=== PATIENT | female | born 1955 | race African-American/Black ===

== ENCOUNTER 2016-09-26 11:10 | Emergency (ER) | payer OTHER ==
[~2016-09-26] VITALS: Ht 167.6 cm; Wt 95.3 kg
[2016-09-26 11:57] VITALS: BP 141/92
[2016-09-26] MEDS ORDERED: LIDOCAINE (700MG/PATCH) PATCH. TD SCH (12:30)
[2016-09-26] MEDS ORDERED: HYDROmorphone 2 MG/ML VIAL IM ONE (12:30)
--- NOTE | 2016-09-26 13:35 | PHYS DOC ---
Past Medical History Past Medical History: DVT, Other Additional Past Medical Histor: venous stasis, r leg numbness, chronic back pain Past Surgical History: Knee Replacement, Other Additional Past Surgical Histo: L knee Alcohol Use: None Drug Use: None Adult General Chief Complaint Chief Complaint: BACK PAIN - NO INJURY HPI HPI Patient is a 60 year old female who presents with complaint of worsening back pain. Patient has history of chronic back pain with right-sided radiculopathy. Patient states that her symptoms have been worsening over the past 1-2 days. Patient states that she is having pain in her right lower back that radiates into her right lower extremity. Patient denies any associated loss of bowel or bladder control, saddle anesthesia, or foot drop. Patient currently on a combination of fentanyl patches and Percocet tablets. Patient states that she took a Percocet tablet at 6:00 this morning. Patient states that despite therapy she is having 11 out of 10 pain currently. Patient denies any associated fevers, vomiting, or other atypical symptoms with her pain. Patient does admit to recent increase in activity. Review of Systems Review of Systems Constitutional: Denies fever or chills [] Eyes: Denies change in visual acuity, redness, or eye pain [] HENT: Denies nasal congestion or sore throat [] Respiratory: Denies cough or shortness of breath [] Cardiovascular: Denies chest pain or edema [] GI: Denies abdominal pain, nausea, vomiting, bloody stools or diarrhea [] : Denies dysuria or hematuria [] Musculoskeletal: Back pain [] Integument: Denies rash or skin lesions [] Neurologic: Denies headache, focal weakness or sensory changes [] Current Medications Current Medications Current Medications Medications (Trade) Dose Ordered Sig/[facility] Start Time Stop Time Status Last Admin Dose Admin Hydromorphone HCl (Dilaudid) 1 mg 1X ONCE 09/26/16 12:30 09/26/16 12:32 DC 09/26/16 12:45 1 MG Lidocaine (Lidoderm) 1 patch DAILY 09/26/16 12:30 09/26/16 13:41 DC 09/26/16 12:44 1 PATCH Allergies Allergies Allergies Coded Allergies Type Severity Reaction Last Updated Verified No Known Drug Allergies 09/26/16 No Physical Exam Physical Exam Constitutional: Alert, afebrile, appears in mild to moderate discomfort. [] HENT: Normocephalic, atraumatic, bilateral external ears normal, oropharynx moist, no oral exudates, nose normal. [] Eyes: PERRLA, EOMI, conjunctiva normal, no discharge. [] Neck: Normal range of motion, no tenderness, supple, no stridor. [] Cardiovascular:Heart rate regular rhythm, no murmur [] Lungs & Thorax: Bilateral breath sounds clear to auscultation [] Abdomen: Bowel sounds normal, soft, no tenderness, no masses, no pulsatile masses. [] Skin: Warm, dry, no erythema, no rash. [] Back: No midline tenderness, right lower lumbar paraspinous muscle tenderness to palpation and tenderness along the distribution of right sciatic nerve, no CVA tenderness. [] Extremities: No tenderness, no cyanosis, no clubbing, ROM intact, no edema. [] Neurologic: Alert and oriented X 3, normal motor function, normal sensory function, no focal deficits noted. [] Current Patient Data Vital Signs Vital Signs Date Time Temp Pulse Resp B/P (MAP) Pulse Ox O2 Delivery O2 Flow Rate FiO2 09/26/16 12:45 18 98 Room Air 09/26/16 11:57 98.4 84 98.4 EKG EKG Not performed [] Radiology/Procedures Radiology/Procedures Not performed [] Course & Med Decision Making Course & Med Decision Making Pertinent Labs and Imaging studies reviewed. (See chart for details) The patient was given IM Dilaudid and a Lidoderm patch was applied to the right lower back. On reevaluation, patient states her symptoms have improved at this time. Patient is ambulatory in the emergency department with a nonfocal during gait. Advised patient to follow back up with her primary doctor in the next 5-7 days to discuss further pain treatment options. Advised return emergency department for any worsening symptoms. Patient voiced understanding and in agreement with treatment plan. Dragon Disclaimer Dragon Disclaimer This electronic medical record was generated, in whole or in part, using a voice recognition dictation system. Departure Departure Impression: Primary Impression: Acute exacerbation of chronic low back pain Disposition: 01 HOME, SELF-CARE Condition: IMPROVED Referrals: XUAN CHAVEZ (PCP) Patient Instructions: Chronic Back Pain Additional Instructions: Follow-up with primary doctor in the next 3-5 days for reevaluation. Return to emergency department for any worsening symptoms. ROYCE BLANCHARD MD Sep 26, 2016 13:35
== END 2016-09-26 13:40 | disposition home or self-care (01) ==
LOC: ER 11:10
DX: G89.29 Other chronic pain (principal); M54.5 Low back pain; Z86.718 Personal history of other venous thrombosis and embolism; Z96.659 Presence of unspecified artificial knee joint
CPT/HCPCS: 96372; 99283; J1170

== ENCOUNTER 2016-10-02 11:44 | Emergency (ER) | payer OTHER ==
[~2016-10-02] VITALS: Ht 167.6 cm; Wt 95.3 kg
[2016-10-02] MEDS ORDERED: oxyCODONE/APAP 7.5/325 1 TAB TABLET PO ONE (13:30)
--- NOTE | 2016-10-02 15:12 | RAD ---
Indication: Bilateral lower extremity pain and swelling. Grayscale, color-flow and duplex Doppler evaluation of bilateral lower extremity deep venous systems was performed. FINDINGS: There is no evidence of right or left lower extremity DVT. Both lower extremity deep venous systems showed normal compressibility with normal response to augmentation and Valsalva. No fluid collection or mass is detected. IMPRESSION: No evidence of right or left lower extremity DVT.
--- NOTE | 2016-10-02 15:22 | RAD ---
Indication: Bilateral lower external knee pain. Grayscale, color-flow and duplex Doppler evaluation of bilateral lower extremity arterial systems was performed. There are predominantly triphasic and biphasic waveforms throughout the right lower extremity arterial system. No significant velocity elevation is seen. No high-grade stenosis or occlusion is identified. There is primarily monophasic flow throughout the left lower extremity arterial system. No significant velocity elevation is seen on the left. No high-grade stenosis or occlusion is detected. Impression: Monophasic flow in the left lower extremity arterial system. This could be owing to a more proximal stenosis, perhaps within the left iliac. No occlusion or high-grade stenosis within either lower extremity arterial system is seen.
[2016-10-02 16:06] VITALS: BP 116/68
--- NOTE | 2016-10-02 19:49 | ED.ADGEN ---
Past Medical History Past Medical History: DVT, Other Additional Past Medical Histor: venous stasis, r leg numbness, chronic back pain Past Surgical History: Cholecystectomy, Hysterectomy Alcohol Use: None Drug Use: None Adult General Chief Complaint Chief Complaint: MULTIPLE COMPLAINTS HPI HPI Patient is a 60 year old [place] female with chronic bilateral leg pain with increased left leg pain and swelling past 2 days. Patient was seen in the emergency department approximately week ago for the same and was seen by Dr. Coleman 2 days ago for back pain. Review of Systems Review of Systems Review symptoms as per history of present illness. All other review symptoms are negative. Current Medications Current Medications Current Medications Medications (Trade) Dose Ordered Sig/[facility] Start Time Stop Time Status Last Admin Dose Admin Oxycodone/ Acetaminophen (Percocet 7.5/ 325) 1 tab 1X ONCE 10/02/16 13:30 10/02/16 13:31 DC 10/02/16 13:40 1 TAB Allergies Allergies Allergies Coded Allergies Type Severity Reaction Last Updated Verified No Known Drug Allergies 10/02/16 No Physical Exam Physical Exam Constitutional: Well developed, well nourished, no acute distress, non-toxic appearance. HENT: Normocephalic, atraumatic, bilateral external ears normal, oropharynx moist, no oral exudates, nose normal. Eyes: PERRL. Neck: Normal range of motion. Cardiovascular:Heart rate regular rhythm, no murmur. Lungs & Thorax: Bilateral breath sounds clear to auscultation. Abdomen: Bowel sounds normal, soft, no tenderness. Skin: No cellulitis. Back: Diffuse mid lower back pain. Extremities: Bilateral peripheral edema with left leg swelling greater than right, dark to discoloration of left ankle and foot. 1+ bipedal pulses. Left leg swelling greater than right. Scarring to right posterior medial thigh. Good distal cap refill. Diffuse soft tissue pain. Neurologic: Alert and oriented X 2. Current Patient Data Vital Signs Vital Signs Date Time Temp Pulse Resp B/P (MAP) Pulse Ox O2 Delivery O2 Flow Rate FiO2 10/02/16 16:06 80 20 116/68 (84) 95 10/02/16 12:13 99.3 Room Air 99.3 EKG EKG [] Radiology/Procedures Radiology/Procedures CV US, Bilateral venous Doppler lower extremities: No evidence of DVT.] CV US, Bilateral arterial Doppler lower extremities.: Monophasic arterial blood flow and left leg with no identifiable stenosis of lower extremity. Common iliac stenosis possible per radiology report. Course & Med Decision Making Course & Med Decision Making Pertinent Labs and Imaging studies reviewed. (See chart for details) [Coordinated and ultrasounds reviewed with detail with Dr. Coleman will see the patient in follow-up. Pain medication righted. Patient has follow-up appointment PCP in 2 days. Dragon Disclaimer Dragon Disclaimer This electronic medical record was generated, in whole or in part, using a voice recognition dictation system. TD MELO DO Oct 02, 2016 19:49
== END 2016-10-02 17:31 | disposition home or self-care (01) ==
LOC: ER 11:44
DX: M79.605 Pain in left leg (principal); M79.604 Pain in right leg; M54.5 Low back pain; G89.29 Other chronic pain; M79.89 Other specified soft tissue disorders; Z86.718 Personal history of other venous thrombosis and embolism; Z90.49 Acquired absence of other specified parts of digestive tract; Z90.710 Acquired absence of both cervix and uterus
CPT/HCPCS: 93923; 93970; 99284-25

== ENCOUNTER 2016-11-14 14:40 | Emergency (ER) | payer OTHER ==
[~2016-11-14] VITALS: Ht 167.6 cm; Wt 95.3 kg
[2016-11-14 15:15] VITALS: BP 135/74
--- NOTE | 2016-11-14 15:57 | RAD ---
Indication fall. Pain. AP oblique and lateral views of the right hand were obtained. There is probable bony demineralization. No acute bony finding is seen
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
--- NOTE | 2016-11-14 16:04 | PHYS DOC ---
Past Medical History Past Medical History: DVT, Other Additional Past Medical Histor: venous stasis, r leg numbness, chronic back pain Past Surgical History: Cholecystectomy, Hysterectomy Additional Past Surgical Histo: L knee Alcohol Use: None Drug Use: None Adult General Chief Complaint Chief Complaint: HAND PROBLEM HPI HPI Patient is a 60 year old female with no significant medical history who presents today complaining of mild right hand pain, bilateral knee pain, and left calf pain after falling yesterday. Patient states she saw a snake on the ground when ambulating. Patient states she had to jump and fell. Patient denies any loss of consciousness. Review of Systems Review of Systems Constitutional: Denies fever or chills [] Musculoskeletal: mild right hand pain, bilateral knee pain, and left calf pain Integument: Denies rash or skin lesions [] Neurologic: Denies headache, focal weakness or sensory changes [] Endocrine: Denies polyuria or polydipsia [] Allergies Allergies Allergies Coded Allergies Type Severity Reaction Last Updated Verified No Known Drug Allergies 10/02/16 No Physical Exam Physical Exam Constitutional: Well developed, well nourished, no acute distress, non-toxic appearance. [] Skin: Warm, dry, no erythema, no rash. [] Back: No tenderness, no CVA tenderness. [] Extremities: Right hand with mild amount of soft tissue swelling on the right middle knuckle. Tenderness on palpation of the right middle knuckle. Full range of motion to the right hand and fingers. +2 right radial pulse. Adequate radial medial and ulnar sensation to the right hand. Cap refill less than 2 seconds the right fingers. Bilateral knees with no obvious deformity. Slight tenderness on palpation over anterior aspect of bilateral knees over the patella. Patient able to hold bilateral lower extremities straight with no difficulties. Negative Bimal sign and negative Gunner's sign negative anterior-posterior drawer sign bilaterally. +2 bilateral pedal pulses. Neurologic: Alert and oriented X 3, normal motor function, normal sensory function, no focal deficits noted. [] Psychologic: Affect normal, judgement normal, mood normal. [] Current Patient Data Vital Signs Vital Signs Date Time Temp Pulse Resp B/P (MAP) Pulse Ox O2 Delivery O2 Flow Rate FiO2 11/14/16 15:15 98.2 96 18 97 Room Air 98.2 EKG EKG [] Radiology/Procedures Radiology/Procedures [] Course & Med Decision Making Course & Med Decision Making Pertinent Labs and Imaging studies reviewed. (See chart for details) Patient is in the ED with right hand pain, bilateral knee pain and right there was no loss of consciousness. Right hand x-rays 3 views interpreted by radiologist were negative for any acute findings. Right tib-fib x-rays interpreted by radiologist were negative for any acute findings. Bilateral knee x-rays interpreted by radiologist were negative for any acute findings. Jim wrap applied to the right hand by me. Neurovascular exam done by me is normal. Patient was discharged with instructions to follow-up with orthopedic doctor in 1-2 weeks. She requested a prescription for pain medicine. She states she only has one Dilaudid left. Informed her i can give her oxycodone for a few days while she tries to get in to see her own doctor. She promised to follow-up with her own doctor for refills. 19:17 Local pharmacy called me stating patient filled the following prescriptions 11/05/2016 Dilaudid 4 mg 120 tablets 10/22/2016 Fentanyl 25 patches 10/22/2016 Oxycodone 1 month supply I cancelled my prescription. Requested the pharmacist to tell patient she can follow-up with her own PCP for pain medicines Patient called complaining stating we refused to fill her prescription for oxycodone. She states we're not respecting her pain needs because we refusing to fill have medicine. Informed patient she was noted to fill the above medications as informed by a local pharmacist. She states she already told us her medicines fell down when she saw a snake yesterday, which is untrue because she never said that to me. Informed her that regardless of how she lost her medication I will not fill the prescription for oxycodone because she has been noted to fill alot of pain medicines in less than a month. Informed that she is welcome to return back to the ED if am present i will give her a pain shot but she must bring a cab driver. She is yelling stating she has no cab driver. Informed her she can take a taxi and come back to the ED and all give her a pain shot. She states she does not want to do that either. Informed her that she is welcomed to follow-up with our pain clinic doctor and I will give her the phone number and she can call tomorrow and be seen. She states she has her own doctor she doesn't need any other doctors. Patient continues to yell. Informed patient we do not fill prescription pain medicine if patient is noted by a local pharmacist to fill another prescription a couple days ago. Informed her even the [employer] is monitoring how people are using drugs and hence would like health care providers to assist in this drug use problem in the country. Patient states it's all about her pain not what the government is doing. Informed patient we as healthcare providers have to step up and help the government fight this problem. Patient continued to yell. Reminded patient she is welcome to come back any time and if I am present and i will give her pain medicine but she must bring a cab driver. Patient is yelling but still begging for me to fill the prescription. Informed will not fill that prescription at all. She hanged up the phone. 19:40 Patient called again asking if she can have Ibuprofen. I informed her i can talk to the pharmacist and order her Ibuprofen 800 mg TID which i did but i will not fill the oxycodone Dragon Disclaimer Dragon Disclaimer This electronic medical record was generated, in whole or in part, using a voice recognition dictation system. Departure Departure Impression: Primary Impression: Fall from standing Additional Impressions: Contusion of right hand Bilateral knee pain Right leg pain Disposition: 01 HOME, SELF-CARE Condition: STABLE Referrals: XUAN CHAVEZ (PCP) Follow-up with your doctor in the next 7 days Patient Instructions: Contusion, Fall Prevention and Home Safety Additional Instructions: You were seen for right hand contusion, bilateral knee pain and left lower extremity pain after falling. Your x-rays are negative for any acute findings. Ice and elevate the extremities. Follow-up with your own doctor in the next 7 days for more pain medications as well as for pain. Return to the ED symptoms worsen. Scripts Naproxen (NAPROXEN) 500 Mg Tablet. 1 TAB PO BID, #30 TAB 2 Refills Prov: CECILE RODRIGUEZ APRN 11/14/16 Cyclobenzaprine Hcl (CYCLOBENZAPRINE HCL) 10 Mg Tablet 1 TAB PO TID, #30 TAB Prov: CECILE RODRIGUEZ APRN 11/14/16 Oxycodone/Apap 5-325 (PERCOCET 5-325 MG TABLET) 1 Each Tablet 1-2 TAB PO Q4-6HRS, #10 TAB Prov: CECILE RODRIGUEZ FRUIT PITTER 11/14/16 Problem Qualifiers Primary Impression: Fall from standing Encounter type: initial encounter Qualified Codes: W19.XXXA - Unspecified fall, initial encounter Additional Impressions: Contusion of right hand Encounter type: initial encounter Qualified Codes: S60.221A - Contusion of right hand, initial encounter Bilateral knee pain Chronicity: acute Qualified Codes: M25.561 - Pain in right knee; M25.562 - Pain in left knee CECILE RODRIGUEZ FRUIT PITTER Nov 14, 2016 16:04
[2016-11-14] MEDS ORDERED: OXYC-323 PO (16:15)
[2016-11-14] MEDS ORDERED: NAPR500T8 PO (16:15)
[2016-11-14] MEDS ORDERED: CYCL10TA2 PO (16:15)
== END 2016-11-14 16:24 | disposition home or self-care (01) ==
LOC: ER 14:40
DX: S60.221A Contusion of right hand, initial encounter (principal); M25.562 Pain in left knee; M25.561 Pain in right knee; M79.604 Pain in right leg; G89.29 Other chronic pain; Z86.718 Personal history of other venous thrombosis and embolism; Z90.49 Acquired absence of other specified parts of digestive tract; Z90.710 Acquired absence of both cervix and uterus; W18.39XA Other fall on same level, initial encounter; Y93.39 Activity, other involving climbing, rappelling and jumping off; Y99.8 Other external cause status; Y92.89 Other specified places as the place of occurrence of the external cause
CPT/HCPCS: 73130; 73564; 73590; 99284-25

== ENCOUNTER 2017-01-28 22:00 | Emergency (ER) | payer OTHER ==
[~2017-01-28] VITALS: Ht 167.6 cm; Wt 90.7 kg
[~2017-01-28 22:00] MED LIST: CYCL10TA2 PO; NAPR500T8 PO; OXYC-323 PO
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
[2017-01-28] MEDS ORDERED: DULO20CA PO (22:39)
[2017-01-28] MEDS ORDERED: ALPR0.5T PO (22:39)
[2017-01-28] MEDS ORDERED: FENT1PAT15 TD (22:39)
[2017-01-28 23:00] VITALS: BP 146/98
[2017-01-28] MEDS ORDERED: NAPR500T8 PO (23:46)
[2017-01-29] MEDS ORDERED: KETOROLAC 60 MG/2 ML INJ. IM ONE
--- NOTE | 2017-01-29 08:33 | RAD ---
Exam: Right hand radiograph 01/28/2017 Indication: Fall, pain involving the third metacarpal Comparison: Right hand radiograph 11/14/2016 Technique: 3 views the right hand are provided. Findings: There is no acute fracture or dislocation. No joint space narrowing. Tiny metallic fragments are identified along the first digit soft tissues, stable. No soft tissue swelling. No osseous erosion or soft tissue gas. Bone mineralization is within normal limits. Impression: No acute fracture or dislocation.
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
[2017-02-03] MEDS ORDERED: PRED20TA PO (16:24)
== END 2017-01-29 00:02 | disposition home or self-care (01) ==
LOC: ER 22:00
DX: S83.91XA Sprain of unspecified site of right knee, initial encounter (principal); S60.221A Contusion of right hand, initial encounter; G89.29 Other chronic pain; W18.39XA Other fall on same level, initial encounter; Y93.89 Activity, other specified; Y99.8 Other external cause status; Y92.89 Other specified places as the place of occurrence of the external cause
CPT/HCPCS: 73130; 73562; 96372; 99284; J1885

== ENCOUNTER 2017-03-05 17:06 | Emergency (ER) | payer OTHER ==
[~2017-03-05] VITALS: Ht 167.6 cm; Wt 87.1 kg
[~2017-03-05 17:06] MED LIST changes: +ALPR0.5T PO; +DULO20CA PO; +FENT1PAT15 TD; +PRED20TA PO
[2017-03-05 17:46] VITALS: BP 126/81
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
[2017-03-05] MEDS ORDERED: KETOROLAC 60 MG/2 ML INJ. IM ONE (18:00)
== END 2017-03-05 18:04 | disposition home or self-care (01) ==
LOC: ER 17:06
DX: M25.561 Pain in right knee (principal); G89.29 Other chronic pain; Z86.718 Personal history of other venous thrombosis and embolism; Z90.49 Acquired absence of other specified parts of digestive tract; Z90.710 Acquired absence of both cervix and uterus; W18.39XA Other fall on same level, initial encounter; Y93.89 Activity, other specified; Y92.512 Supermarket, store or market as the place of occurrence of the external cause; Y99.8 Other external cause status
CPT/HCPCS: 96372; 99283; J1885

== ENCOUNTER 2017-05-27 05:55 | Emergency (ER) | payer OTHER ==
[2017-05-27] MEDS: MORPHINE SULFATE 4 MG/ML DISP.SYRIN. IM ×2 (07:24)
== END 2017-05-27 07:52 | disposition home or self-care (01) ==
LOC: ER 05:55
DX: G89.29 Other chronic pain (principal); M54.5 Low back pain; M54.2 Cervicalgia; M19.90 Unspecified osteoarthritis, unspecified site
CPT/HCPCS: 96372; 99283-25; J2270

== ENCOUNTER 2018-05-18 02:42 | Inpatient (IN) | payer MEDICAID, OTHER ==
[~2018-05-18] VITALS: Ht 170.2 cm; Wt 87.1 kg
[~2018-05-18 02:42] MED LIST changes: -OXYC-323 PO; +OXYC1TAB15 PO
[2018-05-18] MEDS ORDERED: IV NORMAL SALINE 1000ML BAG 1,000 ML IV ONE (03:30)
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
[2018-05-18] MEDS ORDERED: MULTIVIT INFUSN,ADULT 4,VIT K 10 ML, THIAMINE INJ 100 MG, FOLIC ACID INJ 1 MG in IV NOR... IV SCH (03:45)
[2018-05-18 04:18] LABS: BASO % 0 % (0-3); EOS % 0 % (0-3); HEMOGLOBIN 14.4 g/dL (12.0-15.5); LYMPH # 2.3 x10^3/uL (1.0-4.8); LYMPH % 22 % (24-48); MEAN CORPUSCULAR HEMOGLOBIN 28 pg (25-35); MEAN CORPUSCULAR HGB CONC 34 g/dL (31-37); MEAN CORPUSCULAR VOLUME 83 fL (79-100); MONO # 1.2 x10^3/uL (0.0-1.1); MONO % 11 % (0-9); NEUT # 7.1 x10^3uL (1.8-7.7); NEUT % 66 % (31-73); PLATELET COUNT 287 x10^3/uL (140-400); RED BLOOD COUNT 5.15 x10^6/uL (3.50-5.40); WHITE BLOOD COUNT 10.7 x10^3/uL (4.0-11.0)
[2018-05-18 04:19] LABS: BILIRUBIN,URINE MODERATE (NEG); CLARITY,URINE CLOUDY; COLOR,URINE AMBER; NITRITE,URINE NEGATIVE (NEG); PH,URINE 5.5; PROTEIN,URINE 30 mg/dL (NEG-TRACE)
[2018-05-18 04:26] LABS: BARBITURATES NEG (NEG); BENZODIAZEPINES POS (NEG); CANNABINOIDS POS (NEG); COCAINE NEG (NEG); METHADONE NEG (NEG); OPIATES NEG (NEG); PHENCYCLIDINE NEG (NEG)
[2018-05-18 04:27] LABS: AMPHETAMINE/METHAMPHETAMINE NEG (NEG)
[2018-05-18 04:34] LABS: PROTHROMBIN TIME PATIENT 13.6 SEC (11.7-14.0)
[2018-05-18 04:35] LABS: CALCIUM 10.9 mg/dL (8.5-10.1); CREATININE 0.9 mg/dL (0.6-1.0); POTASSIUM 3.3 mmol/L (3.5-5.1)
[2018-05-18 04:39] LABS: ACETAMIN < 2 mcg/ml (10-30); SALIC < 2.8 mg/dL (2.8-20.0)
[2018-05-18 04:40] LABS: ALBUMIN 4.1 g/dL (3.4-5.0); ETHANOL < 10 mg/dL (0-10); MAGNESIUM 2.3 mg/dL (1.8-2.4); TOTAL BILIRUBIN 0.6 mg/dL (0.2-1.0); TOTAL PROTEIN 8.3 g/dL (6.4-8.2)
--- NOTE | 2018-05-18 04:48 | RAD ---
CT Head W/O Contrast: History: New onset hallucinations Comparison: none Axial images were obtained without contrast. The botello and white matter appears normal and symmetrical for the patients age. There is no mass effect, extraaxial fluid collections or hydrocephalus. There is no gross bleed. There is no focal loss of botello-white matter distinction to suggest acute ischemia, i.e. stroke. Impression: No acute findings. RS Compliance Statement: One or more of the following individualized dose reduction techniques were utilized for this examination: 1. Automated exposure control 2. Adjustment of the mA and/or kV according to patient size 3. Use of iterative reconstruction technique Electronically signed by: Hakan Steen III, MD (05/18/2018 4:43 AM) [facility]
[2018-05-18 05:03] LABS: BACTERIA,URINE FEW /HPF (0-FEW); HYALINE CASTS, URINE MODERATE /HPF; RBC,URINE OCC /HPF (0-2); SQUAMOUS EPITHELIAL CELL,UR MANY /LPF
--- NOTE | 2018-05-18 07:24 | EKG ---
[facility] [address] [place] [address] Test Date: 2018-05-18 Test Time: 03:43:37 Pat Name: ROLY GRIFFITH Department: Room: Gender: F [employer] Operator: : [id number] Requested By: TY PLEITEZ Order Number: [id number] Reading MD: Yobani Willoughby MD Measurements Intervals [place] Rate: 111 P: 46 OR: 164 QRS: 11 QRSD: 72 T: 20 QT: 318 QTc: 436 Interpretive Statements SINUS TACHYCARDIA Electronically Signed On 05-22-2018 10:21:23 FINISHER MAP AND CHART by Yobani Willoughby MD
[2018-05-18] MEDS ORDERED: LORazepam 1 MG TABLET PO ONE (07:45)
[2018-05-18] MEDS ORDERED: ZIPRASIDONE IM 20 MG VIAL. IM ONE (09:15)
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
--- NOTE | 2018-05-18 12:23 | NUR ---
patient refused to tell card writer hand the pharmacy she used and the medications she was on, also refused multiple admission questions. Will continue to monitor 1:1 Addendum: 05/18/18 at 1243 by ARVIN BRAND RN patient also refused to have IV line placed.
[2018-05-18 12:24] VITALS: BP 140/80
[2018-05-18] MEDS ORDERED: cloNIDine HCL 0.1 MG TABLET PO PRN (13:45)
[2018-05-18] MEDS ORDERED: oxyCODONE/APAP 5/325 1 TAB TABLET PO PRN (13:45)
[2018-05-18] MEDS ORDERED: POTASSIUM CHLORIDE 20 MEQ TABLET.ER. PO ONE (14:00)
[2018-05-18] MEDS ORDERED: fentaNYL 25MCG/HR PATCH 1 PATCH PATCH.TD72 TD SCH (14:00)
[2018-05-18] MEDS: DULoxetine HCL 20 MG CAPSULE.DR PO SCH (14:44)
[2018-05-18] MEDS: ZIPRASIDONE IM 20 MG VIAL. IM SCH ×2 (14:44→23:49)
[2018-05-18] MEDS: NAPROXEN 500 MG TABLET PO SCH ×2 (14:45→21:32)
[2018-05-18] MEDS: hydrALAZINE 10 MG TABLET PO SCH ×2 (14:45→23:48)
[2018-05-18] MEDS: ALPRAZolam 0.5 MG TABLET PO SCH (14:45)
[2018-05-18] MEDS: CYCLOBENZAPRINE 10 MG TABLET. PO SCH ×2 (14:45→21:31)
[2018-05-18 14:56] VITALS: BP 155/100
[2018-05-18 17:41] VITALS: BP 136/78
--- NOTE | 2018-05-18 17:50 | NUR ---
Patients son stated "we don't get the flu vaccine", patient unable to respond at this time. Patients son refused flu vaccination.
[2018-05-18 19:00] VITALS: BP 133/96
[2018-05-18 23:00] VITALS: BP 170/103
[2018-05-19 03:36] VITALS: BP 147/100
[2018-05-19 06:42] VITALS: BP 148/95
[2018-05-19] MEDS: POTASSIUM CHLORIDE 20 MEQ TABLET.ER. PO SCH ×2 (08:45→10:44)
[2018-05-19] MEDS: ALPRAZolam 0.5 MG TABLET PO SCH ×2 (08:45→08:53)
[2018-05-19] MEDS: NAPROXEN 500 MG TABLET PO SCH (08:45)
[2018-05-19] MEDS: CYCLOBENZAPRINE 10 MG TABLET. PO SCH (08:45)
[2018-05-19] MEDS: DULoxetine HCL 20 MG CAPSULE.DR PO SCH (08:45)
[2018-05-19] MEDS: ZIPRASIDONE IM 20 MG VIAL. IM SCH (08:46)
[2018-05-19] MEDS: hydrALAZINE 10 MG TABLET PO SCH (08:46)
[2018-05-19] MEDS ORDERED: hydroCHLOROthiazide 12.5 MG CAPSULE PO SCH (09:00)
[2018-05-19] MEDS ORDERED: LISINOPRIL 20 MG TABLET PO SCH (09:00)
--- NOTE | 2018-05-19 10:11 | NUR ---
MARC following pt. MARC received a phone call from Lindsay at [facility] who reported pt was screened for OSH. Lindsay reported [facility] has faxed screening for OSH today and they are awaiting to see if they are able to take pt. Pt admission and acceptance to OSH pending. MARC will continue to follow. MARLA BULL.
[2018-05-19 10:49] VITALS: BP 135/87
[2018-05-19] MEDS ORDERED: LISI-130 PO (12:39)
[2018-05-19] MEDS ORDERED: BUSP5TAB PO (12:44)
--- NOTE | 2018-05-19 13:14 | NUR ---
SW following pt. Pt was evaluated by Dave and currently does not meet criteria of involuntary placement at OSH. Spoke with pt's daughter, Ashley via phone who is concerned about pt going home. MARC discussed criteria for involuntary placement and dc plan (pt will f/u with [facility] and [facility] for therapy, med adjustment and case management services) but pt will have to be willing to change. Dave also had spoken with daughter. Daughter agreeable with dc plan. MARLA RN.
--- NOTE | 2018-05-19 13:28 | PDOC3 ---
Discharge Summary Visit Information Date of Admission: May 18, 2018 Date of Discharge: May 19, 2018 Admitting Diagnosis: psychosis Final Diagnosis Problems Medical Problems: (1) Acute psychosis resolved Status: Acute Brief Hospital Course Allergies Allergies Coded Allergies Type Severity Reaction Last Updated Verified No Known Drug Allergies 10/02/16 No Vital Signs Vital Signs Date Time Temp Pulse Resp B/P (MAP) Pulse Ox O2 Delivery O2 Flow Rate FiO2 05/19/18 10:49 98.0 95 18 135/87 (103) 91 Room Air 98.0 Lab Results Laboratory Tests Test 05/18/18 03:36 05/18/18 03:50 05/18/18 17:25 Urine Collection Type Unknown Urine Color Nelli Urine Clarity Cloudy Urine pH 5.5 Urine Specific [place] >=1.030 Urine Protein 30 mg/dL (NEG-TRACE) Urine Glucose (UA) Negative mg/dL (NEG) Urine Ketones (Stick) 15 mg/dL (NEG) Urine Blood Negative (NEG) Urine Nitrite Negative (NEG) Urine Bilirubin Moderate (NEG) Urine Urobilinogen Dipstick 1.0 mg/dL (0.2 mg/dL) Urine Leukocyte Esterase Negative (NEG) Urine RBC Occ /HPF (0-2) Urine WBC 1-4 /HPF (0-4) Urine Squamous Epithelial Cells Many /LPF Urine Bacteria Few /HPF (0-FEW) Urine Hyaline Casts Moderate /HPF Urine Mucus Marked /LPF Urine Opiates Screen Neg (NEG) Urine Methadone Screen Neg (NEG) Urine Barbiturates Neg (NEG) Urine Phencyclidine Screen Neg (NEG) Urine Amphetamine/Methamphetamine Neg (NEG) Urine Benzodiazepines Screen Pos (NEG) Urine Cocaine Screen Neg (NEG) Urine Cannabinoids Screen Pos (NEG) Urine Ethyl Alcohol Neg (NEG) White Blood Count 10.7 x10^3/uL (4.0-11.0) Red Blood Count 5.15 x10^6/uL (3.50-5.40) Hemoglobin 14.4 g/dL (12.0-15.5) Hematocrit 43.0 % (36.0-47.0) Mean Corpuscular Volume 83 fL (79-100) Mean Corpuscular Hemoglobin 28 pg (25-35) Mean Corpuscular Hemoglobin Concent 34 g/dL (31-37) Red Cell Distribution Width 14.0 % (11.5-14.5) Platelet Count 287 x10^3/uL (140-400) Neutrophils (%) (Auto) 66 % (31-73) Lymphocytes (%) (Auto) 22 % (24-48) Monocytes (%) (Auto) 11 % (0-9) Eosinophils (%) (Auto) 0 % (0-3) Basophils (%) (Auto) 0 % (0-3) Neutrophils # (Auto) 7.1 x10^3uL (1.8-7.7) Lymphocytes # (Auto) 2.3 x10^3/uL (1.0-4.8) Monocytes # (Auto) 1.2 x10^3/uL (0.0-1.1) Eosinophils # (Auto) 0.0 x10^3/uL (0.0-0.7) Basophils # (Auto) 0.0 x10^3/uL (0.0-0.2) Prothrombin Time 13.6 SEC (11.7-14.0) Prothromb Time International Ratio 1.1 (0.8-1.1) Sodium Level 142 mmol/L (136-145) Potassium Level 3.3 mmol/L (3.5-5.1) Chloride Level 104 mmol/L (98-107) Carbon Dioxide Level 26 mmol/L (21-32) Anion Gap 12 (6-14) Blood Urea Nitrogen 12 mg/dL (7-20) Creatinine 0.9 mg/dL (0.6-1.0) Estimated GFR (Cockcroft-Gault) 77.0 BUN/Creatinine Ratio 13 (6-20) Glucose Level 130 mg/dL (70-99) Calcium Level 10.9 mg/dL (8.5-10.1) Magnesium Level 2.3 mg/dL (1.8-2.4) Total Bilirubin 0.6 mg/dL (0.2-1.0) Aspartate Amino Transf (AST/SGOT) 29 U/L (15-37) Alanine Aminotransferase (ALT/SGPT) 19 U/L (14-59) Alkaline Phosphatase 98 U/L (46-116) Total Protein 8.3 g/dL (6.4-8.2) Albumin 4.1 g/dL (3.4-5.0) Albumin/Globulin Ratio 1.0 (1.0-1.7) Lipase 104 U/L (73-393) Thyroid Stimulating Hormone (TSH) 2.929 uIU/mL (0.358-3.74) Salicylates Level < 2.8 mg/dL (2.8-20.0) Salicylate Last Dose Date Unknown Salicylate Last Dose Time Unknown Acetaminophen Level < 2 mcg/ml (10-30) Acetaminophen Last Dose Date Unknown Acetaminophen Last Dose Time Unknown Ethyl Alcohol Level < 10 mg/dL (0-10) Phosphorus Level 3.4 mg/dL (2.6-4.7) 25-Hydroxy Vitamin D Total 19.7 ng/mL (30-100) Laboratory Tests Test 05/18/18 17:25 Phosphorus Level 3.4 mg/dL (2.6-4.7) 25-Hydroxy Vitamin D Total 19.7 ng/mL (30-100) Brief Hospital Course Patient admitted with the following diagnosis: Hallucinations - negative UDS, this may be a primary psychotic disorder. TSH and CT head WNL. Her calcium is 10.9, not high enough to be very concerning. Geodon IM for now and needs psych placement HTN - elevated BP will control with clonidine, hydralazine prn for now Hypercalcemia - will check phos, vitamin D, PTH to r/o deficiencies or hyperparathyroidim. If abnormal, will get sestimibi scan, doubt this will be necessary Chronic pain - fentanyl patch in place with hydrocodone prn Anxiety - on xanax, will cont Patient had a very uneventful hospital stay. She was evaluated by mental health. She was deemed appropriate for discharge from their standpoint of view. The patient suffers from generalized anxiety disorder. During my interview the patient denies taking benzodiazepines at the present time he she had stopped taking these approximately 2 weeks prior to her admission. The patient is not exhibiting signs of withdrawal at this time, signs and symptoms of alarm were discussed with her and her family members prior to dismissal. The patient will be started on buspirone but I have encourage her to seek the help from mental health providers that can help her with their generalized anxiety disorder. Reassurance was provided patient was in good spirits to be dismissed home Lungs clear to auscultation with good inspiratory effort Cardia vascular the S1-S2 regular rhythm, resells or rubs Neurologically cranial nerves II-12 intact motor sensory deficits were appreciated Psych patient with cooperative mood no acute distress Discharge Information Disposition/Orders: D/C to Home Scheduled Alprazolam (Xanax) 0.5 Mg Tablet, 1 TAB PO DAILY, #30 (Reported) Entered as Reported by: CLARISSA BARNES on 01/28/172238 Last Action: Continued on 05/18/181336 by ARTHUR SUAREZ MD Buspirone Hcl (Buspirone Hcl) 5 Mg Tablet, 1 TAB PO BID for IVAN, #60 Ref 2 Prescribed by: BENSON WILKES MD on 05/19/18 1244 Cyclobenzaprine Hcl (Cyclobenzaprine Hcl) 10 Mg Tablet, 1 TAB PO TID, #30 Prescribed by: Sandy Woo APRN on 11/14/16 161 Last Action: Continued on 05/18/181336 by ARTHUR SUAREZ MD Duloxetine Hcl (Cymbalta) 20 Mg Capsule.dr, 20 MG PO DAILY, (Reported) Entered as Reported by: CLARISSA BARNES on 01/28/172238 Last Action: Converted on 05/18/181336 by ARTHUR SUAREZ MD Fentanyl (FENTANYL 25mcg/hr) 1 Each Patch.td72, 1 PATCH TD Q72H, (Reported) Entered as Reported by: CLARISSA BARNES on 01/28/172238 Last Action: Continued on 05/18/181336 by ARTHUR SUAREZ MD Lisinopril (Lisinopril) 40 Mg Tablet, 20 MG PO DAILY for HTN for 30 Days, #15 Prescribed by: BENSON WILKES MD on 05/19/18 1239 Naproxen (Naproxen) 500 Mg Tablet.dr, 1 TAB PO BID, #30 Ref 2 Prescribed by: Sandy Woo APRN on 11/14/161614 Last Action: Converted on 05/18/181336 by ARTHUR SUAREZ MD Naproxen (Naproxen) 500 Mg Tablet.dr, 1 TAB PO BID, #30 Ref 2 Prescribed by: ODETTE TOMAS MD on 01/28/17 2346 Last Action: HELD on 05/18/181335 by ARTHUR SUAREZ MD Oxycodone/Apap 5-325 (Percocet 5-325 Mg Tablet ) 1 Each Tablet, 1-2 TAB PO Q4- 6HRS, #10 Prescribed by: Sandy Woo APRN on 11/14/16 1615 Last Action: Continued on 05/18/181336 by ARTHUR SUAREZ MD Discontinued Medications Prednisone (Prednisone) 20 Mg Tablet, 40 MG PO DAILY for 7 Days, #14 Prescribed by: TONI BATES APRN on 02/03/17 1624 Last Action: HELD on 05/18/181335 by MD CHUNG GONZALEZ HECTOR M MD May 19, 2018 13:28
--- NOTE | 2018-05-19 14:59 | NUR ---
Discharge Note: [facility] Discharge instructions and discharge home medications reviewed with Patient and a copy given. All questions have been answered and understanding verbalized. The following instructions and handouts were given: prescription for Buspar, follow up instructions. Discontinued lines and drains: No IV present. Patient discharged to home with self care via son.
[2018-05-20 04:17] LABS: CALCIUM PTH 10.2 mg/dL (8.7-10.3); CREATININE PTH 0.59 mg/dL (0.57-1.00); PHOSPHORUS PTH 3.4 mg/dL (2.5-4.5); PTH INTACT 56 pg/mL (15-65)
== END 2018-05-19 14:00 | disposition home or self-care (01) | DRG 885 ==
LOC: ER 02:42 → 6 SOUTH 11:23
PROVIDERS: ADMIT Internal Medicine; ATTEND Internal Medicine
DX: F23 Brief psychotic disorder (principal); I10 Essential (primary) hypertension; E83.52 Hypercalcemia; F41.9 Anxiety disorder, unspecified; F17.210 Nicotine dependence, cigarettes, uncomplicated; G89.29 Other chronic pain; F32.9 Major depressive disorder, single episode, unspecified; M19.90 Unspecified osteoarthritis, unspecified site; M54.5 Low back pain; F41.1 Generalized anxiety disorder; I87.8 Other specified disorders of veins; Z79.899 Other long term (current) drug therapy; Z90.710 Acquired absence of both cervix and uterus; Z86.718 Personal history of other venous thrombosis and embolism; Z79.01 Long term (current) use of anticoagulants
CPT/HCPCS: 36415; 70450; 80053; 80307; 80329; 81001; 82306; 83690; 83735; 83970; 84100; 84443; 85025; 85610; 93005; 96365; 96372; G0480; G6039; J3486; J7030; 99285-25